=== PATIENT | male | born 1960 | race Caucasian/White ===

== ENCOUNTER 2017-04-13 11:07 | Inpatient (IN) | payer BC ==
[~2017-04-13] VITALS: Ht 188 cm; Wt 88.5 kg
[~2017-04-13 11:07] MED LIST: Z.0.NO CURRENT MEDS
[2017-04-13 11:09] VITALS: BP 124/62; PULSE 83; RESP 13; TEMP 98.4; O2SAT 98
[2017-04-13] MEDS ORDERED: DIAZ10 PO (11:25)
[2017-04-13] MEDS ORDERED: AMOX500C PO (11:25)
[2017-04-13] MEDS ORDERED: ZOLO25TA PO (11:25)
--- NOTE | 2017-04-13 11:42 | PD ---
HPI Chief Complaint: Complaint Time Seen by Provider: 11:17 Travel History International Travel<30 days: No Contact w/Intl Traveler<30days: No Traveled to known affect area: No History of Present Illness HPI The patient is a 56-year-old male who presents to the emergency department for a possible abscess to left aspect of the scrotum as well as the medial aspect the left leg just proximal to left knee. The patient states he has a wound on his left leg for several weeks, was seen at urgent care earlier today and was advised that he had a "spider bite" to the left leg. The patient also noticed some swelling to left aspect of the scrotum which is tender to palpation. He denies any fever, chills, sweats, or history of diabetes. He does state the area is somewhat painful and distended, denies any drainage from the affected area. He denies any difficulty urinating. He denies any associated dysuria, frequency, or urgency. Symptoms are moderate without any alleviating or exacerbating factors. PFSH Past Medical History Asthma: Yes ( A CHILD) Anxiety: Yes Diminished Hearing: No GERD: Yes Past Surgical History Tonsillectomy: Yes Social History Alcohol Use: No Tobacco Use: Yes (/2 PPD) Substance Use: No Allergies-Medications (Allergen,Severity, Reaction): Coded Allergies: penicillin G (Unverified Allergy, Severe, RASH, 04/13/17) pt denies Reported Meds & Prescriptions Reported Meds & Active Scripts Active Reported Amoxicillin 500 Mg Cap 500 Mg PO QID Valium (Diazepam) 10 Mg Tab 10 Mg PO TID PRN Zoloft (Sertraline HCl) 25 Mg Tab 25 Mg PO DAILY Review of Systems Except as stated in HPI: all other systems reviewed are Neg General / Constitutional: No: Fever, Chills Gastrointestinal: No: Nausea, Vomiting, Abdominal Pain Genitourinary: Positive: Other (as noted in history of present illness), No: Urgency, Frequency, Dysuria Skin: Positive Other (lesion on the medial aspect the left leg is noted) Endocrine: No: Other (denies any history diabetes) Physical Exam Narrative GENERAL: Awake, alert, pleasant 56-year-old male who appears his stated age and is in no acute respiratory distress. SKIN: Focused skin assessment warm/dry. Patient has a circular lesion on the medial aspect the left leg proximal to left knee which is approximately 2 and a centimeters in diameter with mild surrounding erythema and a central area necrosis. HEAD: Atraumatic. Normocephalic. EYES: Pupils equal and round. No scleral icterus. No injection or drainage. ENT: No nasal bleeding or discharge. Mucous membranes pink and moist. NECK: Trachea midline. No JVD. CARDIOVASCULAR: Regular rate and rhythm. No murmur appreciated. RESPIRATORY: No accessory muscle use. Clear to auscultation. Breath sounds equal bilaterally. GASTROINTESTINAL: Abdomen soft, non-tender, nondistended. No rebound tenderness. Genitourinary: Circumcised phallus. Both testicles are descended. The patient appears to have a scrotal abscess on the left aspect of the scrotum which is approximately 4 cm in diameter, mild extension into the perineal area. There is some mild fluctuance but no visible drainage. MUSCULOSKELETAL: No obvious deformities. No clubbing. No cyanosis. No edema. NEUROLOGICAL: Awake and alert. No obvious cranial nerve deficits. Motor grossly within normal limits. Normal speech. PSYCHIATRIC: Appropriate mood and affect; insight and judgment normal. Data Data Last Documented VS Vital Signs Date Time Temp Pulse Resp B/P (MAP) Pulse Ox O2 Delivery O2 Flow Rate FiO2 04/13/17 11:16 18 04/13/17 11:09 98.4 83 124/62 (82) [address] Pelvis W Iv Contrast(Rout) (04/13/17 ) Us Testicles W Doppler (04/13/17 ) Complete Blood Count With Diff (04/13/17 11:32) Basic Metabolic Panel (Bmp) (04/13/17 11:32) Lactic Acid (04/13/17 11:32) Sodium Chlor 0.9% 1000 Ml Inj (Ns 1000 M (04/13/17 11:45) Iohexol 350 Inj (Omnipaque 350 Inj) (04/13/17 12:59) Consult Urology (04/13/17 ) Aztreonam Inj (Azactam Inj) (04/13/17 13:46) Clindamycin Inj (Cleocin Inj) (04/13/17 13:46) Vancomycin Inj (Vancomycin Inj) (04/13/17 13:46) (Hub Use Only)Inp Phy Cons/Ref (04/13/17 ) Admit To Inpatient (04/13/17 ) Vital Signs (Adult) Q4H (04/13/17 14:07) Activity Oob With Assistance (04/13/17 14:07) Sodium Chloride 0.9% Flush (Ns Flush) (04/13/17 14:15) Sodium Chloride 0.9% Flush (Ns Flush) (04/13/17 21:00) Acetaminophen (Tylenol) (04/13/17 14:15) Ondansetron Inj (Zofran Inj) (04/13/17 14:15) Comprehensive Metabolic Panel (04/14/17 06:00) Complete Blood Count With Diff (04/14/17 06:00) Scd Bilateral/Knee High JANICE.BID (04/13/17 14:07) Sebastián Bilateral/Knee High JANICE.QSHIFT (04/13/17 14:07) Acetaminophen (Tylenol) (04/13/17 14:15) Acetamin-Hydrocod 325-5 Mg ([place]le 5-325 (04/13/17 14:15) Acetamin-Hydrocod 325-10 Mg ([place] 10-32 (04/13/17 14:15) Naloxone Inj (Narcan Inj) (04/13/17 14:15) Magnesium Hydroxide Liq (Milk Of Magnesi (04/13/17 14:15) Sennosides (Senokot) (04/13/17 14:15) Bisacodyl Supp (Dulcolax Supp) (04/13/17 14:15) Lactulose Liq (Lactulose Liq) (04/13/17 14:15) Inpatient Certification (04/13/17 ) Vancomycin Consult Pharmacy (Vancomycin (04/13/17 14:15) Clindamycin 900 Mg Premix (Cleocin 900 M (04/13/17 22:00) Aztreonam Inj (Azactam Inj) (04/13/17 22:00) Admit Order (Ed Use Only) (04/13/17 ) Vital Signs (Adult) Q4H (04/13/17 14:10) Diet Heart Healthy (04/13/17 Dinner) Activity Oob With Assistance (04/13/17 14:10) Npo After Midnight W/ Po Meds (04/13/17 Dinner) Labs Laboratory Tests Test 04/13/17 11:41 White Blood Count 13.6 TH/MM3 Red Blood Count 5.12 MIL/MM3 Hemoglobin 15.8 GM/DL Hematocrit 45.8 % Mean Corpuscular Volume 89.5 FL Mean Corpuscular Hemoglobin 31.0 PG Mean Corpuscular Hemoglobin Concent 34.6 % Red Cell Distribution Width 14.0 % Platelet Count 195 TH/MM3 Mean Platelet Volume 8.3 FL Neutrophils (%) (Auto) 80.1 % Lymphocytes (%) (Auto) 11.7 % Monocytes (%) (Auto) 6.7 % Eosinophils (%) (Auto) 1.0 % Basophils (%) (Auto) 0.5 % Neutrophils # (Auto) 10.9 TH/MM3 Lymphocytes # (Auto) 1.6 TH/MM3 Monocytes # (Auto) 0.9 TH/MM3 Eosinophils # (Auto) 0.1 TH/MM3 Basophils # (Auto) 0.1 TH/MM3 CBC Comment DIFF FINAL Differential Comment Blood Urea Nitrogen 7 MG/DL Creatinine 0.91 MG/DL Random Glucose 82 MG/DL Calcium Level 9.3 MG/DL Sodium Level 136 MEQ/L Potassium Level 4.0 MEQ/L Chloride Level 103 MEQ/L Carbon Dioxide Level 28.3 MEQ/L Anion Gap 5 MEQ/L Estimat Glomerular Filtration Rate 86 ML/MIN Lactic Acid Level 1.3 mmol/L MDM Medical Decision Making Medical Screen Exam Complete: Yes Emergency Medical Condition: Yes Medical Record Reviewed: Yes Interpretation(s) Laboratory Tests Test 04/13/17 11:41 White Blood Count 13.6 TH/MM3 Red Blood Count 5.12 MIL/MM3 Hemoglobin 15.8 GM/DL Hematocrit 45.8 % Mean Corpuscular Volume 89.5 FL Mean Corpuscular Hemoglobin 31.0 PG Mean Corpuscular Hemoglobin Concent 34.6 % Red Cell Distribution Width 14.0 % Platelet Count 195 TH/MM3 Mean Platelet Volume 8.3 FL Neutrophils (%) (Auto) 80.1 % Lymphocytes (%) (Auto) 11.7 % Monocytes (%) (Auto) 6.7 % Eosinophils (%) (Auto) 1.0 % Basophils (%) (Auto) 0.5 % Neutrophils # (Auto) 10.9 TH/MM3 Lymphocytes # (Auto) 1.6 TH/MM3 Monocytes # (Auto) 0.9 TH/MM3 Eosinophils # (Auto) 0.1 TH/MM3 Basophils # (Auto) 0.1 TH/MM3 CBC Comment DIFF FINAL Differential Comment Blood Urea Nitrogen 7 MG/DL Creatinine 0.91 MG/DL Random Glucose 82 MG/DL Calcium Level 9.3 MG/DL Sodium Level 136 MEQ/L Potassium Level 4.0 MEQ/L Chloride Level 103 MEQ/L Carbon Dioxide Level 28.3 MEQ/L Anion Gap 5 MEQ/L Estimat Glomerular Filtration Rate 86 ML/MIN Lactic Acid Level 1.3 mmol/L Last Impressions Scrotum Ultrasound 04/13/17 0000 Signed Impressions: Service Date/Time: Thursday, April 13, 2017 11:52 - CONCLUSION: 1. The testicles are within normal limits bilaterally. 2. Small bilateral hydroceles. 3. Simple appearing 5 mm left epididymal cyst. 4. 3 mm complex area involving the left epididymis. This could be a complex cyst versus inflammatory changes. 5. Complex area along the lateral inferior left scrotal region measuring 4.8 x 2.5 cm. An inflammatory process such as a focal abscess would be the primary consideration. This needs to be correlated patient's physical and clinical exam of this area. Benja Tran MD Pelvis CT 04/13/17 0000 Signed Impressions: Service Date/Time: Thursday, April 13, 2017 12:45 - CONCLUSION: 1. 4.4 x 1.9 x 3.0 cm abscess at the left scrotal base. No associated Lori gangrene at this point. 2. Mild diverticular disease of the descending colon without diverticulitis. . Bobby Gill MD Differential Diagnosis Differential diagnosis includes scrotal abscess, Fourniers disease, cellulitis, abscess, wound infection. Narrative Course IV was established, labs are drawn and sent, the patient was placed on cardiac telemetry monitoring and continuous pulse oximetry monitoring. Ultrasound of the scrotum was ordered and CT of the pelvis with IV contrast was ordered to evaluate for possible extension of the abscess into the abdomen. Patient was administered IV fluids. Ultrasound and CT reveal large left scrotal abscess measures 4.5 cm x 2 cm, no evidence of Fourniers disease. The on-call urologist , Dr. Ford, was paged at 1:30 PM. I discussed the patient with the urologist who requested admission to the medical service, nothing by mouth after midnight for possible surgical management. The patient was placed on IV antibiotics and will be allowed to eat today. The on-call medical service was paged for admission. Sepsis Criteria SIRS Criteria (2 or more): WBC > 44949, < 4000 or > 10% bands Physician Communication Physician Communication The on-call medical service was paged for admission. I discussed the patient with Dr. Farmer who agrees with admission. Diagnosis Primary Impression: Scrotal abscess Admitting Information Admitting Physician Requests: Admit Condition: Stable Ronald Segura MD Apr 13, 2017 11:42
[2017-04-13] MEDS: SODIUM CHLOR 0.9% 1000 ML INJ 1,000 ML IV SCH ×2 (11:50→21:06)
[2017-04-13 11:54] LABS: AUTOMATED NEUTROPHIL # 10.9 TH/MM3 (1.8-7.7); BASOPHIL # 0.1 TH/MM3 (0-0.2); BASOPHIL % 0.5 % (0.0-2.0); EOSINOPHIL # 0.1 TH/MM3 (0-0.4); HEMATOCRIT 45.8 % (39.0-51.0); HEMO FLAGS DIFF FINAL; LYMPH % 11.7 % (9.0-44.0); LYMPHOCYTE # 1.6 TH/MM3 (1.0-4.8); MEAN CELL VOLUME 89.5 FL (80.0-100.0); MEAN CORPUSCULAR HGB CONC 34.6 % (32.0-36.0); MONO % 6.7 % (0.0-8.0); NEUT % 80.1 % (16.0-70.0); PLATELET COUNT 195 TH/MM3 (150-450); RED BLOOD COUNT 5.12 MIL/MM3 (4.50-5.90); WHITE BLOOD COUNT 13.6 TH/MM3 (4.0-11.0)
[2017-04-13 12:08] LABS: BICARBONATE 28.3 MEQ/L (21.0-32.0)
--- NOTE | 2017-04-13 12:45 | RADRPT ---
EXAM DATE/TIME: 04/13/2017 11:52 [facility] COMPARISON: No previous studies available for comparison. INDICATIONS : Scrotal pain and swelling. MEDICAL HISTORY : Gastroesophageal reflux disease. Asthma. SURGICAL HISTORY : Tonsillectomy. Right leg fracture repair. ENCOUNTER: Initial ACUITY: 1 day PAIN SCORE: 4/10 LOCATION: Bilateral scrotum. MEASUREMENTS: RIGHT TESTICLE: 5.8 x 2.5 x 3.1cm LEFT TESTICLE: 5.8 x 3.8 x 2.8cm FINDINGS: RIGHT TESTICLE: Homogeneous echotexture without intra or extratesticular mass. Blood flow is symmetric and within no rmal limits. No varicocele. Epididymis is within normal limits. Small right hydrocele. LEFT TESTICLE: Homogeneous echotexture without intra or extratesticular mass. Blood flow is symmetric and within no rmal limits. There is a cyst involving the epididymal head measuring 5 mm. There is a complex area me asuring 3 mm involving the epididymis head. There is a small hydrocele. In the lateral inferior left scrotal area there is a complex area with some increased blood flow measuring 4.8 x 2.5 cm. SCROTUM: Complex area along the lateral inferior left scrotal area measuring 4.8 x 2.5 cm. CONCLUSION: 1. The testicles are within normal limits bilaterally. 2. Small bilateral hydroceles. 3. Simple appearing 5 mm left epididymal cyst. 4. 3 mm complex area involving the left epididymis. This could be a complex cyst versus inflammatory changes. 5. Complex area along the lateral inferior left scrotal region measuring 4.8 x 2.5 cm. An inflammator y process such as a focal abscess would be the primary consideration. This needs to be correlated pat ient's physical and clinical exam of this area. Benja Tran MD on April 13, 2017 at 12:38 Board Certified Radiologist. This report was verified electronically.
[2017-04-13] MEDS ORDERED: IOHEXOL 350 MG/ML 10 ML VIAL (for RAD DIAG) IVCONTRAST ONE (12:59)
--- NOTE | 2017-04-13 13:21 | RADRPT ---
EXAM DATE/TIME: 04/13/2017 12:45 [facility] COMPARISON: No previous studies available for comparison. INDICATIONS : Scrotal abscess vs. Lori's gangrene. IV CONTRAST: 83 cc Omnipaque 350 (iohexol) IV ORAL CONTRAST: No oral contrast ingested. RADIATION DOSE: 8.45 CTDIvol (mGy) MEDICAL HISTORY : None SURGICAL HISTORY : None. ENCOUNTER: Initial ACUITY: 1 day PAIN SCALE: 6/10 LOCATION: scrotum TECHNIQUE: Volumetric scanning of the pelvis was performed. Using automated exposure control and adjustment of t he mA and/or kV according to patient size, radiation dose was kept as low as reasonably achievable to obtain optimal diagnostic quality images. DICOM format image data is available electronically for review and comparison. FINDINGS: BOWEL/MESENTERY: The visualized small and large bowel demonstrate no acute abnormality. There is no free fluid. A few scattered diverticula in the descending colon without diverticulitis BLADDER: There is no wall thickening or mass. RETROPERITONEUM: There is no aneurysm or lymphadenopathy. REPRODUCTIVE: Fluid density at the left base of the scrotum measures 4.4 x 1.9 x 3 cm and is characteristic of a sc rotal abscess. No associated Lori gangrene. INGUINAL: There is no lymphadenopathy or hernia. MUSCULOSKELETAL: Within normal limits for patient age. CONCLUSION: 1. 4.4 x 1.9 x 3.0 cm abscess at the left scrotal base. No associated Lori gangrene at this point . 2. Mild diverticular disease of the descending colon without diverticulitis. . Bobby Gill MD on April 13, 2017 at 13:13 Board Certified Radiologist. This report was verified electronically.
[2017-04-13] MEDS ORDERED: AZTREONAM INJ 2,000 MG in SODIUM CHLORIDE 0.9% INJ 100 ML IV STA (13:46)
[2017-04-13] MEDS ORDERED: VANCOMYCIN INJ 1,000 MG in SODIUM CHLOR 0.9% 250 ML INJ 250 ML IV STA (13:46)
[2017-04-13] MEDS ORDERED: CLINDAMYCIN INJ 900 MG in SODIUM CHLORIDE 0.9% INJ 100 ML IV STA (13:46)
[2017-04-13] MEDS ORDERED: ACETAMINOPHEN 325 MG TAB PO PRN ×2 (14:15)
[2017-04-13] MEDS ORDERED: LACTULOSE SYRUP 20 GM/30 ML CUP PO PRN (14:15)
[2017-04-13] MEDS ORDERED: SENNOSIDES 8.6 MG TAB PO PRN (14:15)
[2017-04-13] MEDS ORDERED: NALOXONE HCL 0.4 MG/ML AMP IV PUSH PRN (14:15)
[2017-04-13] MEDS ORDERED: ACETAMINOPHEN/HYDROcodone 325 MG/10 MG TAB PO PRN (14:15)
[2017-04-13] MEDS ORDERED: MAGNESIUM HYDROXIDE SUSP 30 ML CUP PO PRN (14:15)
[2017-04-13] MEDS ORDERED: BISACODYL 10 MG SUPP RECTAL PRN (14:15)
[2017-04-13] MEDS ORDERED: Vancomycin Consult Pharmacy 1 EA OTHER SCH (14:15)
[2017-04-13] MEDS ORDERED: SODIUM CHLORIDE 0.9% FLUSH 10 ML FLUSH IV FLUSH PRN (14:15)
[2017-04-13] MEDS ORDERED: ACETAMINOPHEN/HYDROcodone 325 MG/5 MG TAB PO PRN (14:15)
[2017-04-13] MEDS ORDERED: ONDANSETRON HCL 4 MG/2 ML VIAL IVP PRN (14:15)
[2017-04-13] MEDS: VANCOMYCIN 1,000 MG/NS 250 ML IV SCH ×4 (14:52→21:06)
--- NOTE | 2017-04-13 15:48 | HHI.HP ---
[facility]ician No Primary Care Physician Admission Diagnosis left scrotal abscess Diagnoses: (1) Anxiety and depression (2) Scrotal abscess Chief Complaint: Skin infection Travel History International Travel<30 Days: No Contact w/Intl Traveler <30 Da: No Traveled to Known Affected Are: No History of Present Illness Patient is a 56-year-old male who presented to the emergency department with complaint of possible abscess on the left side of his scrotum. He also has an area of erythema and tenderness with a central scab on the left leg. This has been present weeks. He has worsened recently and he went to urgent care earlier today. He was initially told that he had a "spider bite". The left side of the scrotum has been swelling over the past couple days. This is becoming more tender. He has not had any drainage. No fevers, chills, night sweats. Review of Systems Constitutional: DENIES: Fever, Chills, Night Sweats Eyes: DENIES: Blurred vision, Vision loss Ears, nose, mouth, throat: DENIES: Hearing loss Respiratory: DENIES: Cough, Wheezing, Sputum production, Shortness of breath Cardiovascular: DENIES: Chest pain, Palpitations, Dyspnea on Exertion, Lower Extremity Edema Gastrointestinal: DENIES: Abdominal pain, Constipation, Diarrhea, Nausea, Vomiting Genitourinary: DENIES: Urinary frequency, Urinary incontinence, Urgency, Hematuria, Dysuria, Nocturia Musculoskeletal: DENIES: Joint pain, Muscle aches Integumentary: COMPLAINS OF: Rash, DENIES: Pruritus Hematologic/lymphatic: DENIES: Bruising Neurologic: DENIES: Headache Past Family Social History Past Medical History Anxiety/depression GERD Childhood asthma Past Surgical History Tonsillectomy Reported Medications Amoxicillin 500 Mg Cap 500 Mg PO QID Valium (Diazepam) 10 Mg Tab 10 Mg PO TID PRN Zoloft (Sertraline HCl) 25 Mg Tab 25 Mg PO DAILY Allergies: Coded Allergies: penicillin G (Unverified Allergy, Severe, RASH, 04/13/17) pt denies Family History Denies significant family history Social History Smokes one half pack per day. Quit drinking alcohol 6 years ago. Denies illicit drug use. Physical Exam Vital Signs Vital Signs Date Time Temp Pulse Resp B/P (MAP) Pulse Ox O2 Delivery O2 Flow Rate FiO2 04/13/17 15:03 04/13/17 11:16 18 04/13/17 11:09 98.4 83 13 124/62 (82) 98 Physical Exam GENERAL: Well-nourished, well-developed male in no acute distress. HEENT: Normocephalic, atraumatic. Pupils equal, round and reactive. Extraocular movements intact. No scleral icterus. No injection or drainage. Oropharynx is clear. Mucous membranes are moist. CARDIOVASCULAR: Regular rate and rhythm without murmurs, gallops, or rubs. RESPIRATORY: Clear to auscultation. No wheezes, rales, or rhonchi. Breathing is non-labored. GASTROINTESTINAL: Abdomen soft, non-tender, nondistended. EXTREMITIES: No lower extremity edema. No calf tenderness. PSYCH: Alert and oriented x 3. SKIN: There is a 3-4 cm diameter area of erythema on the medial left leg just proximal to the knee. There is an area of central scabbing. No active drainage. No apparent fluctuance. : Large area of fluctuance on the left side of the scrotum. Minimal overlying erythema. No open wound or drainage. Laboratory Laboratory Tests Test 04/13/17 11:41 White Blood Count 13.6 Red Blood Count 5.12 Hemoglobin 15.8 Hematocrit 45.8 Mean Corpuscular Volume 89.5 Mean Corpuscular Hemoglobin 31.0 Mean Corpuscular Hemoglobin Concent 34.6 Red Cell Distribution Width 14.0 Platelet Count 195 Mean Platelet Volume 8.3 Neutrophils (%) (Auto) 80.1 Lymphocytes (%) (Auto) 11.7 Monocytes (%) (Auto) 6.7 Eosinophils (%) (Auto) 1.0 Basophils (%) (Auto) 0.5 Neutrophils # (Auto) 10.9 Lymphocytes # (Auto) 1.6 Monocytes # (Auto) 0.9 Eosinophils # (Auto) 0.1 Basophils # (Auto) 0.1 CBC Comment DIFF FINAL Differential Comment Blood Urea Nitrogen 7 Creatinine 0.91 Random Glucose 82 Calcium Level 9.3 Sodium Level 136 Potassium Level 4.0 Chloride Level 103 Carbon Dioxide Level 28.3 Anion Gap 5 Estimat Glomerular Filtration Rate 86 Lactic Acid Level 1.3 Result Diagram: 04/13/17 1141 04/13/17 1141 Imaging Last Impressions Scrotum Ultrasound 04/13/17 0000 Signed Impressions: Service Date/Time: Thursday, April 13, 2017 11:52 - CONCLUSION: 1. The testicles are within normal limits bilaterally. 2. Small bilateral hydroceles. 3. Simple appearing 5 mm left epididymal cyst. 4. 3 mm complex area involving the left epididymis. This could be a complex cyst versus inflammatory changes. 5. Complex area along the lateral inferior left scrotal region measuring 4.8 x 2.5 cm. An inflammatory process such as a focal abscess would be the primary consideration. This needs to be correlated patient's physical and clinical exam of this area. Benja Tran MD Pelvis CT 04/13/17 0000 Signed Impressions: Service Date/Time: Thursday, April 13, 2017 12:45 - CONCLUSION: 1. 4.4 x 1.9 x 3.0 cm abscess at the left scrotal base. No associated Lroi gangrene at this point. 2. Mild diverticular disease of the descending colon without diverticulitis. . Bobby Gill MD Capchristophe VTE Risk Assessment Caprini VTE Risk Assessment: No/Low Risk (score <= 1) Caprini Risk Assessment Model Point Value = 1 Point Value = 2 Point Value = 3 Point Value = 5 Age 41-60 Minor surgery BMI > 25 kg/m2 Swollen legs Varicose veins or History of unexplained or recurrent spontaneous Oral contraceptives or hormone replacement Sepsis (< 1 month) Serious lung disease, including pneumonia (< 1 month) Abnormal pulmonary function Acute myocardial infarction Congestive heart failure (< 1 month) History of inflammatory bowel disease Medical patient at bed rest Age 61-74 Arthroscopic surgery Major open surgery (> 45 min) Laparoscopic surgery (> 45 min) Malignancy Confined to bed (> 72 hours) Immobilizing plaster cast Central venous access Age >= 75 History of VTE Family history of VTE Factor V Leiden Prothrombin [id number] Lupus anticoagulant Anticardiolipin antibodies Elevated serum homocysteine Heparin-induced thrombocytopenia Other congenital or acquired thrombophilia Stroke (< 1 month) Elective arthroplasty Hip, pelvis, or leg fracture Acute spinal cord injury (< 1 month) Prophylaxis Regimen Total Risk Factor Score Risk Level Prophylaxis Regimen 0-1 Low Early ambulation 2 Moderate Order ONE of the following: *Sequential Compression Device (SCD) *Heparin 5000 units SQ BID 3-4 Higher Order ONE of the following medications: *Heparin 5000 units SQ TID *Enoxaparin/Lovenox 40 mg SQ daily (WT < 150 kg, CrCl > 30 mL/min) *Enoxaparin/Lovenox 30 mg SQ daily (WT < 150 kg, CrCl > 10-29 mL/min) *Enoxaparin/Lovenox 30 mg SQ BID (WT < 150 kg, CrCl > 30 mL/min) AND/OR *Sequential Compression Device (SCD) 5 or more Highest Order ONE of the following medications: *Heparin 5000 units SQ TID (Preferred with Epidurals) *Enoxaparin/Lovenox 40 mg SQ daily (WT < 150 kg, CrCl > 30 mL/min) *Enoxaparin/Lovenox 30 mg SQ daily (WT < 150 kg, CrCl > 10-29 mL/min) *Enoxaparin/Lovenox 30 mg SQ BID (WT < 150 kg, CrCl > 30 mL/min) AND *Sequential Compression Device (SCD) Assessment and Plan Assessment and Plan 1. Abscess, scrotum: Continue IV antibiotics. Urology consultation is pending. Planning for incision and drainage tomorrow. Discussed with Dr. Ford. 2. Cellulitis/abscess, left leg: Continue antibiotics. 3. Anxiety/depression: Continue Zoloft, Valium. 4. DVT prophylaxis: CATHY Petit. Elliott Farmer MD Apr 13, 2017 15:48
[2017-04-13 16:00] VITALS: BP 99/68; PULSE 64; RESP 16; TEMP 96.8; O2SAT 97
--- NOTE | 2017-04-13 16:28 | MB ---
cc: RUBINA TILLEY MD DATE OF CONSULTATION: 04/13/2017 REASON FOR CONSULTATION: Scrotal abscess. HISTORY OF PRESENT ILLNESS: The patient is a 56-year-old male who presented to the emergency department earlier today with complaints of left-sided scrotal pain, swelling and redness for the last couple days. He denies any fevers, chills, flank pain, nausea, vomiting drainage from the site. He recently went to urgent care earlier today for a possible spider bite on his left thigh, however, his scrotal pain became progressively worse so he came to the emergency room for further evaluation. In the emergency room he is found to have a white count of 13.6, his scrotal ultrasound was preformed which showed a 4 cm fluid collection on his left hemiscrotum consistent with scrotal abscess. The patient was admitted start on IV antibiotics a urology was consulted. The patient denies any previous scrotal abscess is in the past. Denies any dysuria, hematuria or issues with the urination, he only gets up one time a night. Denies history of kidney stones, urinary tract infections or family history of prostate cancer. REVIEW OF SYSTEMS See HPI otherwise all systems reviewed otherwise negative. PAST HISTORY Anxiety Gastroesophageal reflux disease Asthma. PAST SURGICAL HISTORY Circumcision tonsillectomy. MEDICATIONS: Valium Zoloft Amoxicillin ALLERGIES PENICILLIN FAMILY HISTORY Denies urolithiasis genitourinary malignancies. SOCIAL HISTORY Smokes one and half-pack per day, quit drinking alcohol 6 years ago. Denies illicit drug use. He use to work for [employer], currently taking care of his mother. PHYSICAL EXAMINATION VITAL SIGNS: Temperature 98.4. Pulse 83, respiratory rate 13, BLOOD PRESSURE 124/62, satting 98% room air. IN GENERAL: He is alert and she no apparent distress pleasant cooperative, appears stated age. HEAD, EYES, EARS, NOSE, AND THROAT: Head: Soft with some cephalic, atraumatic. Eyes: No scleral icterus. Extraocular muscles intact. NECK: Neck is supple. Trachea is midline. No JVD. SKIN: [place] and moist. He does have a red scab tender erythema Jared on his left inner thigh. LUNGS: Clear to auscultation bilaterally. No murmurs, gallops, rubs and no wheezes, rales or rhonchi. HEART: Regular rhythm. No murmurs, gallops, rubs. ABDOMEN: Soft, nontender, nondistended. Positive bowel sounds. GENITOURINARY: No costovertebral angle tenderness bilaterally. His penis circumcised. Urethral meatus is normal. Testes are normal size consistency descended on both sides. On the left inferior portion of the scrotum he has a tender erythremic fluctuant area approximately 3 cm in diameter. It has currently been draining purulent material. RECTUM: The rectal examination not completed at this time. EXTREMITIES: Nontender. No clubbing, cyanosis, edema. NEUROLOGIC: Cranial nerves II-XII intact. Strength 05/05 all four extremities. PSYCHIATRIC: Psych normal affect. LABORATORY DATA White count 13.6, hemoglobin 55, hematocrit 45, platelet count 195. Chemistry sodium 136, potassium 4.0, chloride 103, bicarb 20.3, BUN 7, creatinine 0.91. IMAGING STUDIES Scrotal ultrasound images were reviewed. Radiologist report the patient has a 4.5 cm fluid collections in the inferior portion of hemiscrotum, consistent with a scrotal abscess. PLAN The patient is a 56-year-old male presents with a large scrotal abscess. To make the patient n.p.o. after midnight we will schedule for I&D of scrotal abscess under anesthesia discussed risks, benefits, alternatives of the procedure including the possibly loss of testicle, urethral injury among others. He elected the to proceed. Will continue vancomycin aztreonam and gentamicin as already ordered by the primary team. Rubina Tilley MD EMMiesha/john /4:06 PM /4:14 PM
[2017-04-13 20:30] VITALS: BP 103/56; PULSE 70; RESP 18; TEMP 98.8; O2SAT 98
[2017-04-13] MEDS: SODIUM CHLORIDE 0.9% FLUSH 10 ML FLUSH IV FLUSH SCH (21:05)
[2017-04-13] MEDS: AZTREONAM INJ 1,000 MG in SODIUM CHLORIDE 0.9% INJ 100 ML IV SCH (23:43)
[2017-04-14 00:20] VITALS: BP 98/55; PULSE 68; RESP 18; TEMP 98; O2SAT 96
[2017-04-14] MEDS: CLINDAMYCIN 900 MG PREMIX 50 ML IV SCH ×3 (01:46→14:26)
[2017-04-14] MEDS ORDERED: LACTATED RINGER'S 1000 ML IV PRN (04:15)
[2017-04-14] MEDS ORDERED: SODIUM CHLORID 0.9% 500 ML IV PRN (04:15)
[2017-04-14] MEDS: AZTREONAM INJ 1,000 MG in SODIUM CHLORIDE 0.9% INJ 100 ML IV SCH ×3 (04:40→21:38)
[2017-04-14 05:44] LABS: AUTOMATED NEUTROPHIL # 7.6 TH/MM3 (1.8-7.7); BASOPHIL # 0.1 TH/MM3 (0-0.2); BASOPHIL % 0.7 % (0.0-2.0); EOSINOPHIL # 0.4 TH/MM3 (0-0.4); EOSINOPHIL % 3.3 % (0.0-4.0); HEMATOCRIT 41.7 % (39.0-51.0); HEMO FLAGS DIFF FINAL; LYMPH % 21.1 % (9.0-44.0); LYMPHOCYTE # 2.4 TH/MM3 (1.0-4.8); MEAN CELL VOLUME 88.8 FL (80.0-100.0); MEAN CORPUSCULAR HEMOGLOBIN 30.5 PG (27.0-34.0); MEAN CORPUSCULAR HGB CONC 34.4 % (32.0-36.0); MONO % 8.3 % (0.0-8.0); NEUT % 66.6 % (16.0-70.0); PLATELET COUNT 187 TH/MM3 (150-450); RED BLOOD COUNT 4.69 MIL/MM3 (4.50-5.90); RED CELL DISTRIBUTION WIDTH 13.9 % (11.6-17.2); WHITE BLOOD COUNT 11.4 TH/MM3 (4.0-11.0)
[2017-04-14 06:07] LABS: ALKALINE PHOSPHATASE 62 U/L (45-117); ALT (GPT) 20 U/L (12-78); ANION GAP 8 MEQ/L (5-15); AST (GOT) 13 U/L (15-37); BICARBONATE 26.2 MEQ/L (21.0-32.0); BLOOD UREA NITROGEN 10 MG/DL (7-18); CHLORIDE 105 MEQ/L (98-107); GLOMERULAR FILTRATION RATE 101 ML/MIN (>89); POTASSIUM 4.2 MEQ/L (3.5-5.1); SODIUM (NA) 139 MEQ/L (136-145); TOTAL BILIRUBIN ADULT 0.5 MG/DL (0.2-1.0)
[2017-04-14] MEDS: VANCOMYCIN 1,000 MG/NS 250 ML IV SCH ×4 (06:21→16:44)
[2017-04-14 08:00] VITALS: BP 90/52; PULSE 60; RESP 16; TEMP 98.2; O2SAT 94
[2017-04-14] MEDS: SODIUM CHLORIDE 0.9% FLUSH 10 ML FLUSH IV FLUSH SCH ×2 (09:34→21:00)
[2017-04-14] MEDS ORDERED: FAMOTIDINE 20 MG/2 ML VIAL ONE (09:52)
--- NOTE | 2017-04-14 10:15 | HHI.PR ---
Subjective Patient symptoms today scrotum drained more overnight. pain improved. However, c/o more pain from abscess on leg. Denies fevers, chill. Denies dysuria Objective Vital Signs Vital Signs Date Time Temp Pulse Resp B/P (MAP) Pulse Ox O2 Delivery O2 Flow Rate FiO2 04/14/17 08:00 98.2 60 16 90/52 (65) 94 04/14/17 00:20 98.0 68 18 98/55 (69) 96 04/13/17 20:30 98.8 70 18 103/56 (72) 98 04/13/17 16:00 96.8 64 16 99/68 (78) 97 04/13/17 15:03 04/13/17 11:16 18 04/13/17 11:09 98.4 83 13 124/62 (82) 98 Intake & Output 04/14/17 04/14/17 07:00 19:00 Intake Total 550 ml Balance 550 ml Intake IV Total 550 ml # Voids 1 Result Diagram: 04/14/17 0502 04/14/17 0502 Objective Remarks NAD. 3 cm in diameter indurated, fluctuant area on inferior portion of left scrotum, draining purulent material Medications and IVs Current Medications Medications (Trade) Dose Ordered Sig/Dahlia Route Start Time Stop Time Status Last Admin Sodium Chloride 1,000 ml @ 84 mls/hr [id number] IV 04/13/17 11:45 04/13/17 21:06 (NS Flush) 2 ml UNSCH PRN IV FLUSH 04/13/17 14:15 (NS Flush) 2 ml BID IV FLUSH 04/13/17 21:00 04/13/17 21:05 (Tylenol) 650 mg Q4H PRN PO 04/13/17 14:15 (Zofran Inj) 4 mg Q6H PRN IVP 04/13/17 14:15 (Tylenol) 650 mg Q6H PRN PO 04/13/17 14:15 ([place] 5-325 Mg) 1 tab Q4H PRN PO 04/13/17 14:15 ([place] 10-325 Mg) 1 tab Q4H PRN PO 04/13/17 14:15 (Narcan Inj) 0.4 mg UNSCH PRN IV PUSH 04/13/17 14:15 (Milk Of Magnesia Liq) 30 ml Q12H PRN PO 04/13/17 14:15 (Senokot) 17.2 mg Q12H PRN PO 04/13/17 14:15 (Dulcolax Supp) 10 mg DAILY PRN RECTAL 04/13/17 14:15 (Lactulose Liq) 30 ml DAILY PRN PO 04/13/17 14:15 Pharmacy Profile Note 0 ml @ 0 mls/hr UNSCH OTHER 04/13/17 14:15 Clindamycin Phosphate/Dextrose 50 ml @ 100 mls/hr Q8H IV 04/13/17 23:00 04/14/17 05:10 Aztreonam 1000 mg/ Sodium Chloride 100 ml @ 200 mls/hr Q8H IV 04/13/17 22:00 04/14/17 04:40 Vancomycin HCl 1000 mg/Sodium Chloride 250 ml @ 250 mls/hr Q8H IV 04/13/17 15:00 04/14/17 06:21 Miscellaneous Information SPECIFIC LAB TO BE AKBAR... ONCE ONCE .XX 04/14/17 14:45 04/14/17 14:46 Lactated Ringer's 1,000 ml @ 30 mls/hr Q24H PRN IV 04/14/17 04:15 04/17/17 04:14 Sodium Chloride 500 ml @ 30 mls/hr [id number] PRN IV 04/14/17 04:15 04/17/17 04:14 Assessment and Plan Problem List: (1) Scrotal abscess ICD Code: N49.2 - Inflammatory disorders of scrotum Status: Acute Assessment and Plan To OR today for I & D scrotal abscess May need General Surgery and/or ID to examine wound of left leg Porfirio Ford MD Apr 14, 2017 10:15
[2017-04-14] MEDS ORDERED: DO NOT ADM ANY ANTICOAGULANT DRUGS PRN (10:46)
--- NOTE | 2017-04-14 10:49 | PD.OP ---
Operative Report Date of Surgery: Apr 14, 2017 Preoperative Diagnosis: (1) Scrotal abscess Postoperative Diagnosis: (1) Scrotal abscess Procedure: Incision and Drainage of Scrotal Abscess Surgeon: Porfirio Ford Furniture Mover Helper(s): n/a Operation and Findings: 56 yo male presents with scrotal abscess. Treatment options were discussed, including IV antibiotics versus Incision and Drainage. He elected to proceed with Incision and Drainage of Scrotal Abscess under General Anesthetic. After informed consent was obtained, he was brought back to the operating room where he was placed supine on operating table. He was placed under an LMA by the Anesthesia team. Appropriate pre-operative antibiotics were given within 1 hour of the procedure. A proper timeout was performed. He was placed in dorsal lithotomy position, prepped and draped in usual sterile, surgical fashion. A 3 cm incision was made with a 11 blade along the indurated, draining area on the inferior portion of his left hemiscrotum. A significant amount of purulent material was expressed. Cultures were taken. A hemostat was used to break up several other pus pockets. The wound was copiously irrigated. Hemostasis was adequate. The wound was packed with 1/4" Iodoform packing. Dressing, scrotal support was applied. Procedure was terminated. Sponge and instrument count was correct. Transferred to PACU in stable condition without any immediate complications. Porfirio Ford MD Apr 14, 2017 10:49
[2017-04-14 12:00] VITALS: BP 113/55; PULSE 43; RESP 16; TEMP 97.5; O2SAT 98
--- NOTE | 2017-04-14 12:12 | EKG ---
Date Performed: 04/14/2017 Time Performed: 06:14:22 PTAGE: 56 years EKG: Sinus rhythm Low QRS voltages in limb leads Borderline ECG PREVIOUS TRACING : 01/02/2008 18.16 Since previous tracing, there are no longer changes of infe rior wall myocardial infarction. DOCTOR: Chu Franks Interpretating Date/Time 04/14/2017 12:11:40
[2017-04-14] MEDS: SODIUM CHLOR 0.9% 1000 ML INJ 1,000 ML IV SCH ×2 (12:33→21:38)
[2017-04-14] MEDS ORDERED: PHARMACY ORDERED LAB ONE (14:45)
--- NOTE | 2017-04-14 15:29 | HHI.PR ---
Subjective Remarks Follow-up scrotal abscess, leg abscess. Patient had incision and drainage of the scrotal abscess done this morning. Still having pain at the site of the abscess in his left upper leg. It has not worsened and has not increased in size overnight. The area is still red and painful. Objective Vitals Vital Signs Date Time Temp Pulse Resp B/P (MAP) Pulse Ox O2 Delivery O2 Flow Rate FiO2 04/14/17 12:00 97.5 43 16 113/55 (74) 98 04/14/17 11:12 98.9 61 14 105/57 (73) 93 Nasal Cannula 2 04/14/17 11:00 56 14 107/57 (74) 93 Nasal Cannula 2 04/14/17 10:51 98.9 61 14 96/65 (75) 93 Nasal Cannula 2 04/14/17 08:00 98.2 60 16 90/52 (65) 94 04/14/17 00:20 98.0 68 18 98/55 (69) 96 04/13/17 20:30 98.8 70 18 103/56 (72) 98 04/13/17 16:00 96.8 64 16 99/68 (78) 97 I/O 04/13/17 04/13/17 04/13/17 04/14/17 04/14/17 04/14/17 07:00 15:00 23:00 07:00 15:00 23:00 Intake Total 206 ml 250 ml 300 ml 700 ml Output Total 5 ml Balance 206 ml 250 ml 300 ml 695 ml Intake IV Total 206 ml 250 ml 300 ml Other 700 ml Output Estimated Blood Loss 5 ml # Voids 1 Result Diagram: 04/14/17 0502 04/14/17 0502 Imaging Last Impressions Scrotum Ultrasound 04/13/17 0000 Signed Impressions: Service Date/Time: Thursday, April 13, 2017 11:52 - CONCLUSION: 1. The testicles are within normal limits bilaterally. 2. Small bilateral hydroceles. 3. Simple appearing 5 mm left epididymal cyst. 4. 3 mm complex area involving the left epididymis. This could be a complex cyst versus inflammatory changes. 5. Complex area along the lateral inferior left scrotal region measuring 4.8 x 2.5 cm. An inflammatory process such as a focal abscess would be the primary consideration. This needs to be correlated patient's physical and clinical exam of this area. Benja Tran MD Pelvis CT 04/13/17 0000 Signed Impressions: Service Date/Time: Thursday, April 13, 2017 12:45 - CONCLUSION: 1. 4.4 x 1.9 x 3.0 cm abscess at the left scrotal base. No associated Lori gangrene at this point. 2. Mild diverticular disease of the descending colon without diverticulitis. . Bobby Gill MD Objective Remarks General: No acute distress. Heart: Regular rate and rhythm. No murmur. Lungs: Clear to auscultation bilaterally. No wheezes, rales, or rhonchi. Breathing is nonlabored. Abdomen: Soft, nontender, nondistended. Extremities: No lower extremity edema. Psych: Alert and oriented. : Deferred. Skin: 3-4 cm area of erythema with a central scab on the medial upper left leg. No drainage. Procedures 04/14/17 incision and drainage, scrotal abscess Urinary Catheter: No Vascular Central Line Catheter: No A/P Problem List: (1) Anxiety and depression ICD Code: F41.8 - Other specified anxiety disorders (2) Scrotal abscess ICD Code: N49.2 - Inflammatory disorders of scrotum Status: Acute Assessment and Plan 1. Abscess, scrotum: Continue IV antibiotics. Appreciate urology recommendations. Status post incision and drainage. Cultures are pending. 2. Abscess, left leg: Continue antibiotics. Add warm compresses. 3. Anxiety/depression: Continue Zoloft, Valium. 4. DVT prophylaxis: CATHY Petit. Elliott Farmer MD Apr 14, 2017 15:29
[2017-04-14] MEDS ORDERED: DIAZEPAM 10 MG TAB PO PRN (15:30)
[2017-04-14 16:00] VITALS: BP 104/55; PULSE 59; RESP 18; TEMP 96.8; O2SAT 96
[2017-04-14] MEDS ORDERED: PILL SPLITTER OTHER PRN (16:00)
[2017-04-14] MEDS: SERTRALINE HCL 50 MG TAB PO SCH (16:43)
[2017-04-14 17:58] VITALS: O2SAT 98
[2017-04-14 20:00] VITALS: BP 92/52; PULSE 56; RESP 18; TEMP 97.9; O2SAT 96
[2017-04-14] MEDS: CLINDAMYCIN INJ 900 MG in SODIUM CHLORIDE 0.9% INJ 50 ML IV SCH (22:44)
[2017-04-15] VITALS: BP 100/52; PULSE 47; RESP 18; TEMP 97.3; O2SAT 96
[2017-04-15] MEDS: VANCOMYCIN 1,000 MG/NS 250 ML IV SCH ×4 (00:27→09:13)
[2017-04-15] MEDS: CLINDAMYCIN INJ 900 MG in SODIUM CHLORIDE 0.9% INJ 50 ML IV SCH ×3 (04:29→23:00)
[2017-04-15 05:19] LABS: AUTOMATED NEUTROPHIL # 8.8 TH/MM3 (1.8-7.7); BASOPHIL # 0.1 TH/MM3 (0-0.2); BASOPHIL % 0.5 % (0.0-2.0); EOSINOPHIL # 0.1 TH/MM3 (0-0.4); EOSINOPHIL % 0.5 % (0.0-4.0); HEMATOCRIT 39.5 % (39.0-51.0); HEMO FLAGS DIFF FINAL; LYMPH % 21.4 % (9.0-44.0); LYMPHOCYTE # 2.6 TH/MM3 (1.0-4.8); MEAN CELL VOLUME 89.9 FL (80.0-100.0); MEAN CORPUSCULAR HEMOGLOBIN 30.7 PG (27.0-34.0); MEAN CORPUSCULAR HGB CONC 34.2 % (32.0-36.0); MONO % 6.8 % (0.0-8.0); NEUT % 70.8 % (16.0-70.0); PLATELET COUNT 180 TH/MM3 (150-450); WHITE BLOOD COUNT 12.4 TH/MM3 (4.0-11.0)
[2017-04-15] MEDS: AZTREONAM INJ 1,000 MG in SODIUM CHLORIDE 0.9% INJ 100 ML IV SCH ×3 (05:38→21:30)
[2017-04-15 08:00] VITALS: BP 103/62; PULSE 62; RESP 17; TEMP 96.1; O2SAT 95
--- NOTE | 2017-04-15 09:06 | HHI.PR ---
Subjective Patient symptoms today minimal pain in scrotum. Denies fevers, chills, nausea. Voiding well. Objective Vital Signs Vital Signs Date Time Temp Pulse Resp B/P (MAP) Pulse Ox O2 Delivery O2 Flow Rate FiO2 04/15/17 00:00 97.3 47 18 100/52 (68) 96 04/14/17 20:00 97.9 56 18 92/52 (65) 96 04/14/17 17:58 98 Nasal Cannula 2.00 04/14/17 16:00 96.8 59 18 104/55 (71) 96 04/14/17 12:00 97.5 43 16 113/55 (74) 98 04/14/17 11:12 98.9 61 14 105/57 (73) 93 Nasal Cannula 2 04/14/17 11:00 56 14 107/57 (74) 93 Nasal Cannula 2 04/14/17 10:51 98.9 61 14 96/65 (75) 93 Nasal Cannula 2 Intake & Output 04/15/17 04/15/17 07:00 19:00 Intake Total 1386 ml Balance 1386 ml Intake Oral 480 ml IV Total 906 ml # Voids 1 # Bowel Movements 0 Result Diagram: 04/15/17 0430 04/14/17 0502 Objective Remarks NAD. incision appears clean, non tender, non erythematous with mild serosanguineous drainage. Packing in place Medications and IVs Current Medications Medications (Trade) Dose Ordered Sig/Dahlia Route Start Time Stop Time Status Last Admin Sodium Chloride 1,000 ml @ 84 mls/hr [id number] IV 04/13/17 11:45 04/14/17 21:38 (NS Flush) 2 ml UNSCH PRN IV FLUSH 04/13/17 14:15 (NS Flush) 2 ml BID IV FLUSH 04/13/17 21:00 04/13/17 21:05 (Tylenol) 650 mg Q4H PRN PO 04/13/17 14:15 (Zofran Inj) 4 mg Q6H PRN IVP 04/13/17 14:15 (Tylenol) 650 mg Q6H PRN PO 04/13/17 14:15 ([place] 5-325 Mg) 1 tab Q4H PRN PO 04/13/17 14:15 ([place] 10-325 Mg) 1 tab Q4H PRN PO 04/13/17 14:15 (Narcan Inj) 0.4 mg UNSCH PRN IV PUSH 04/13/17 14:15 (Milk Of Magnesia Liq) 30 ml Q12H PRN PO 04/13/17 14:15 (Senokot) 17.2 mg Q12H PRN PO 04/13/17 14:15 (Dulcolax Supp) 10 mg DAILY PRN RECTAL 04/13/17 14:15 (Lactulose Liq) 30 ml DAILY PRN PO 04/13/17 14:15 Pharmacy Profile Note 0 ml @ 0 mls/hr UNSCH OTHER 04/13/17 14:15 Aztreonam 1000 mg/ Sodium Chloride 100 ml @ 200 mls/hr Q8H IV 04/13/17 22:00 04/15/17 05:38 Lactated Ringer's 1,000 ml @ 30 mls/hr Q24H PRN IV 04/14/17 04:15 04/17/17 04:14 Sodium Chloride 500 ml @ 30 mls/hr [id number] PRN IV 04/14/17 04:15 04/17/17 04:14 Miscellaneous Information ALL NURSING DEPARTME... UNSCH PRN .XX 04/14/17 10:46 04/15/17 10:45 (Valium) 10 mg TID PRN PO 04/14/17 15:30 (Zoloft) 25 mg DAILY PO 04/14/17 15:30 04/14/17 16:43 (Pill Splitter) 1 ea UNSCH PRN OTHER 04/14/17 16:00 Clindamycin Phosphate 900 mg/ Sodium Chloride 56 ml @ 100 mls/hr Q8H IV 04/14/17 23:00 04/15/17 04:29 Vancomycin HCl 1000 mg/Sodium Chloride 250 ml @ 250 mls/hr Q8H IV 04/15/17 00:00 04/15/17 00:27 Assessment and Plan Problem List: (1) Scrotal abscess ICD Code: N49.2 - Inflammatory disorders of scrotum Status: Acute Assessment and Plan s/p I & D scrotal abscess, POD #1 -continue dressing changes, packing daily -Antibiotics, pending cultures -Ok to shower. -OK to d/c home. F/U as outpatient. -Please call with questions. Available as needed. Porfirio Ford MD Apr 15, 2017 09:06
--- NOTE | 2017-04-15 09:07 | HHI.FF ---
Face to Face Verification Diagnosis: (1) Scrotal abscess Home Health Nursing Order: Wound care and dressing changes I have seen patient Andrey Salcedo on 04/15/17. My clinical findings support the need for the requested home health care services because: Limited ability to care for self I certify that my clinical findings support that this patient is homebound because: Post-op weakness Porfirio Ford MD Apr 15, 2017 09:07
[2017-04-15] MEDS: SERTRALINE HCL 50 MG TAB PO SCH (09:12)
[2017-04-15] MEDS: SODIUM CHLORIDE 0.9% FLUSH 10 ML FLUSH IV FLUSH SCH ×2 (09:13→21:00)
[2017-04-15] MEDS: SODIUM CHLOR 0.9% 1000 ML INJ 1,000 ML IV SCH ×2 (09:13→21:30)
--- NOTE | 2017-04-15 11:47 | HHI.PR ---
Subjective Remarks Follow-up abscess. The patient states that the left upper leg abscess started draining yesterday. He notified the nurse who obtained a sample for culture. He reports less pain around the leg abscess site. Scrotal abscess site continues to improve as well. No nausea or vomiting. No chest pain or dyspnea. Objective Vitals Vital Signs Date Time Temp Pulse Resp B/P (MAP) Pulse Ox O2 Delivery O2 Flow Rate FiO2 04/15/17 08:00 96.1 62 17 103/62 (76) 95 04/15/17 00:00 97.3 47 18 100/52 (68) 96 04/14/17 20:00 97.9 56 18 92/52 (65) 96 04/14/17 17:58 98 Nasal Cannula 2.00 04/14/17 16:00 96.8 59 18 104/55 (71) 96 04/14/17 12:00 97.5 43 16 113/55 (74) 98 I/O 04/14/17 04/14/17 04/14/17 04/15/17 04/15/17 04/15/17 07:00 15:00 23:00 07:00 15:00 23:00 Intake Total 300 ml 700 ml 1654 ml 1286 ml Output Total 5 ml Balance 300 ml 695 ml 1654 ml 1286 ml Intake Oral 800 ml 480 ml IV Total 300 ml 854 ml 806 ml Other 700 ml Output Estimated Blood Loss 5 ml # Voids 1 3 1 # Bowel Movements 0 0 Result Diagram: 04/15/17 0430 04/14/17 0502 Imaging Last Impressions Scrotum Ultrasound 04/13/17 0000 Signed Impressions: Service Date/Time: Thursday, April 13, 2017 11:52 - CONCLUSION: 1. The testicles are within normal limits bilaterally. 2. Small bilateral hydroceles. 3. Simple appearing 5 mm left epididymal cyst. 4. 3 mm complex area involving the left epididymis. This could be a complex cyst versus inflammatory changes. 5. Complex area along the lateral inferior left scrotal region measuring 4.8 x 2.5 cm. An inflammatory process such as a focal abscess would be the primary consideration. This needs to be correlated patient's physical and clinical exam of this area. Benja Tran MD Pelvis CT 04/13/17 0000 Signed Impressions: Service Date/Time: Thursday, April 13, 2017 12:45 - CONCLUSION: 1. 4.4 x 1.9 x 3.0 cm abscess at the left scrotal base. No associated Lori gangrene at this point. 2. Mild diverticular disease of the descending colon without diverticulitis. . Bobby Gill MD Objective Remarks General: No acute distress. Heart: Regular rate and rhythm. No murmur. Lungs: Clear to auscultation bilaterally. No wheezes, rales, or rhonchi. Breathing is nonlabored. Abdomen: Soft, nontender, nondistended. Extremities: No lower extremity edema. Psych: Alert and oriented. : Deferred. Skin: 3-4 cm area of erythema with a central open wound on the medial upper left leg. Small amount of bloody/pustular drainage on the bandage. Procedures 04/14/17 incision and drainage, scrotal abscess Urinary Catheter: No Vascular Central Line Catheter: No A/P Problem List: (1) Anxiety and depression ICD Code: F41.8 - Other specified anxiety disorders (2) Scrotal abscess ICD Code: N49.2 - Inflammatory disorders of scrotum Status: Acute (3) Abscess of left leg ICD Code: L02.416 - Cutaneous abscess of left lower limb Assessment and Plan 1. Abscess, scrotum: Continue IV antibiotics. Appreciate urology recommendations. Status post incision and drainage. Wound culture growing MRSA. 2. Abscess, left leg: Continue antibiotics. Abscess drained last night. Culture is pending. 3. Anxiety/depression: Continue Zoloft, Valium. 4. DVT prophylaxis: SCDs, CATHY patricke. Discharge Planning Possible discharge home tomorrow. Patient will need home health for dressing changes per Urology. Elliott Farmer MD Apr 15, 2017 11:47
[2017-04-15 12:00] VITALS: BP 105/54; PULSE 53; RESP 17; TEMP 96.6; O2SAT 96
[2017-04-15 16:00] VITALS: BP 119/68; PULSE 53; RESP 17; TEMP 96.8; O2SAT 96
[2017-04-15] MEDS: VANCOMYCIN INJ 1,500 MG in SODIUM CHLORID 0.9% 500 ML INJ 500 ML IV SCH ×2 (17:33→23:41)
[2017-04-15 19:03] VITALS: O2SAT 96
[2017-04-15 20:00] VITALS: BP 112/68; PULSE 61; RESP 20; TEMP 97.6; O2SAT 96
[2017-04-16] VITALS: BP 99/53; PULSE 80; RESP 20; TEMP 97.9; O2SAT 96
[2017-04-16] MEDS: AZTREONAM INJ 1,000 MG in SODIUM CHLORIDE 0.9% INJ 100 ML IV SCH (04:24)
[2017-04-16] MEDS: CLINDAMYCIN INJ 900 MG in SODIUM CHLORIDE 0.9% INJ 50 ML IV SCH (05:35)
[2017-04-16 06:55] LABS: AUTOMATED NEUTROPHIL # 4.6 TH/MM3 (1.8-7.7); BASOPHIL # 0.1 TH/MM3 (0-0.2); BASOPHIL % 1.1 % (0.0-2.0); EOSINOPHIL # 0.3 TH/MM3 (0-0.4); EOSINOPHIL % 3.5 % (0.0-4.0); HEMATOCRIT 39.5 % (39.0-51.0); HEMO FLAGS DIFF FINAL; LYMPH % 35.2 % (9.0-44.0); LYMPHOCYTE # 3.1 TH/MM3 (1.0-4.8); MEAN CELL VOLUME 89.5 FL (80.0-100.0); MEAN CORPUSCULAR HEMOGLOBIN 30.8 PG (27.0-34.0); MEAN CORPUSCULAR HGB CONC 34.4 % (32.0-36.0); NEUT % 53.2 % (16.0-70.0); PLATELET COUNT 182 TH/MM3 (150-450); RED BLOOD COUNT 4.41 MIL/MM3 (4.50-5.90); WHITE BLOOD COUNT 8.7 TH/MM3 (4.0-11.0)
[2017-04-16 07:22] LABS: BICARBONATE 27.6 MEQ/L (21.0-32.0); POTASSIUM 4.9 MEQ/L (3.5-5.1)
[2017-04-16 08:00] VITALS: BP 118/72; PULSE 58; RESP 20; TEMP 96.9; O2SAT 96
[2017-04-16] MEDS: SODIUM CHLORIDE 0.9% FLUSH 10 ML FLUSH IV FLUSH SCH (09:00)
[2017-04-16] MEDS: VANCOMYCIN INJ 1,500 MG in SODIUM CHLORID 0.9% 500 ML INJ 500 ML IV SCH (09:21)
[2017-04-16] MEDS: SERTRALINE HCL 50 MG TAB PO SCH (09:21)
--- NOTE | 2017-04-16 09:24 | HHI.FF ---
Face to Face Verification Diagnosis: (1) Abscess of left leg (2) Scrotal abscess Home Health Nursing Order: Wound care and dressing changes Nursing assessment with vital signs Instructions: Change dressing daily. Pack with 1/4" iodoform and cover with gauze pad. I have seen patient Andrey Salcedo on 04/16/17. My clinical findings support the need for the requested home health care services because: Infection w/ risk of complications I certify that my clinical findings support that this patient is homebound because: Post-op weakness Elliott Farmer MD Apr 16, 2017 09:24
[2017-04-16] MEDS ORDERED: HYDR-3516 PO (09:28)
[2017-04-16] MEDS ORDERED: SULF1TAB23 PO (09:28)
--- NOTE | 2017-04-16 09:31 | HHI.DS ---
Discharge Summary Admission Date Apr 13, 2017 at 14:12 Discharge Date: Apr 16, 2017 Admitting Diagnosis left scrotal abscess (1) Anxiety and depression ICD Code: F41.8 - Other specified anxiety disorders (2) Scrotal abscess ICD Code: N49.2 - Inflammatory disorders of scrotum Status: Acute (3) Abscess of left leg ICD Code: L02.416 - Cutaneous abscess of left lower limb Procedures 04/14/17 incision and drainage, scrotal abscess Brief History - From Admission Patient is a 56-year-old male who presented to the emergency department with complaint of possible abscess on the left side of his scrotum. He also has an area of erythema and tenderness with a central scab on the left leg. This has been present weeks. He has worsened recently and he went to urgent care earlier today. He was initially told that he had a "spider bite". The left side of the scrotum has been swelling over the past couple days. This is becoming more tender. He has not had any drainage. No fevers, chills, night sweats. CBC/BMP: 04/16/17 0631 04/16/17 0631 Significant Findings Laboratory Tests Test 04/13/17 11:41 04/14/17 05:02 04/14/17 16:05 04/15/17 04:30 White Blood Count 13.6 TH/MM3 (4.0-11.0) 11.4 TH/MM3 (4.0-11.0) 12.4 TH/MM3 (4.0-11.0) Neutrophils (%) (Auto) 80.1 % (16.0-70.0) 70.8 % (16.0-70.0) Neutrophils # (Auto) 10.9 TH/MM3 (1.8-7.7) 8.8 TH/MM3 (1.8-7.7) Estimat Glomerular Filtration Rate 86 ML/MIN (>89) Monocytes (%) (Auto) 8.3 % (0.0-8.0) Albumin 3.0 GM/DL (3.4-5.0) Aspartate Amino Transf (AST/SGOT) 13 U/L (15-37) Red Blood Count 4.40 MIL/MM3 (4.50-5.90) Test 04/16/17 06:31 Red Blood Count 4.41 MIL/MM3 (4.50-5.90) Calcium Level 8.2 MG/DL (8.5-10.1) Chloride Level 108 MEQ/L (98-107) Imaging Last Impressions Scrotum Ultrasound 04/13/17 0000 Signed Impressions: Service Date/Time: Thursday, April 13, 2017 11:52 - CONCLUSION: 1. The testicles are within normal limits bilaterally. 2. Small bilateral hydroceles. 3. Simple appearing 5 mm left epididymal cyst. 4. 3 mm complex area involving the left epididymis. This could be a complex cyst versus inflammatory changes. 5. Complex area along the lateral inferior left scrotal region measuring 4.8 x 2.5 cm. An inflammatory process such as a focal abscess would be the primary consideration. This needs to be correlated patient's physical and clinical exam of this area. Benja Tran MD Pelvis CT 04/13/17 0000 Signed Impressions: Service Date/Time: Thursday, April 13, 2017 12:45 - CONCLUSION: 1. 4.4 x 1.9 x 3.0 cm abscess at the left scrotal base. No associated Lori gangrene at this point. 2. Mild diverticular disease of the descending colon without diverticulitis. . Bobby Gill MD PE at Discharge General: No acute distress. Heart: Regular rate and rhythm. No murmur. Lungs: Clear to auscultation bilaterally. No wheezes, rales, or rhonchi. Breathing is nonlabored. Abdomen: Soft, nontender, nondistended. Extremities: No lower extremity edema. Psych: Alert and oriented. : Deferred. Skin: 3-4 cm area of erythema with a central open wound on the medial upper left leg. Small amount of bloody/pustular drainage on the bandage. Pt update on day of discharge Patient has no complaints at this time. The left leg abscess has improved significantly. He has had quite a bit of drainage from the scrotal abscess site. He wants to go home today. Hospital Course The patient was admitted for management of scrotal abscess. Urology was consulted. Patient was started on IV antibiotics. Incision and drainage was done. Culture grew MRSA. Patient had spontaneous drainage of a smaller abscess on the left upper leg. He was cleared for discharge by urology. He was felt to be stable for discharge home with home health nursing for dressing changes. Pt Condition on Discharge: Stable Discharge Disposition: Disch w/ Home Health Serv Discharge Time: > 30 minutes Discharge Instructions DIET: Follow Instructions for: As Tolerated, No Restrictions Activities you can perform: Regular-No Restrictions Other Activity Instructions: Per Urology, OK to shower. Follow up Referrals: PCP Follow-up - 2 Weeks Urology - 2-3 Days with Porfirio Ford MD New Medications: Sulfamethoxazole-Trimethoprim (Sulfamethoxazole-Trimethoprim) 800-160 Mg Tab 1 TAB PO BID for Infection, #14 TAB 0 Refills Hydrocodone/Acetaminophen (Hydrocodone-Acetamin 5-325 mg) 5 Mg-325 Mg Tablet 1 TAB PO Q4H PRN for PAIN SCALE 4 TO 10, #10 TAB 0 Refills Continued Medications: Diazepam (Valium) 10 Mg Tab 10 MG PO TID PRN for ANXIETY, TAB 0 Refills Sertraline (Zoloft) 25 Mg Tab 25 MG PO DAILY, #30 TAB 0 Refills Discontinued Medications: Amoxicillin (Amoxicillin) 500 Mg Cap 500 MG PO QID for Infection, CAP 0 Refills Elliott Farmer MD Apr 16, 2017 09:30
[2017-04-16 10:38] VITALS: O2SAT 96
[2017-04-16 12:00] VITALS: BP 106/63; PULSE 55; RESP 20; TEMP 97.3; O2SAT 97
[2017-04-16] MEDS ORDERED: PHARMACY ORDERED LAB ONE (15:45)
[2017-04-16 16:00] VITALS: BP 134/76; PULSE 68; RESP 19; TEMP 98.8; O2SAT 97
== END 2017-04-16 17:26 | disposition home health service (06) | DRG 728 ==
LOC: NEPD 11:07 → NEDA 14:12 → N07B 15:09
PROVIDERS: ADMIT Family Medicine; ATTEND Family Medicine
PROC: 0V950ZX Drainage of Scrotum, Open Approach, Diagnostic (ICD-10-PCS; principal; 2017-04-14 10:02)
DX: N49.2 Inflammatory disorders of scrotum (principal); L02.416 Cutaneous abscess of left lower limb; L03.116 Cellulitis of left lower limb; B95.62 Methicillin resistant Staphylococcus aureus infection as the cause of diseases classified elsewhere; F32.9 Major depressive disorder, single episode, unspecified; F41.9 Anxiety disorder, unspecified; K21.9 Gastro-esophageal reflux disease without esophagitis; F17.210 Nicotine dependence, cigarettes, uncomplicated
CPT/HCPCS: 72193; 76870; 80048; 80053; 80202; 83605; 85025; 86403; 87015; 87070; 87102; 87116; 87147; 87186; 87205; 87206; 93005; 93975; 96360; J3370; J7030; J7040; J7050; Q9967